=== PATIENT | male | born 1990 | race African-American/Black ===

== ENCOUNTER 2017-05-11 16:08 | Emergency (ER) | payer OTHER ==
[2017-05-11] MEDS ORDERED: HYDROcodone/Acetaminophen 5/325 mg Tablet ONE (17:32)
--- NOTE | 2017-05-11 18:23 | RAD ---
THREE VIEWS THIRD DIGIT RIGHT HAND: 05/11/17 HISTORY: Trauma and pain. AP, lateral and oblique views third digit right hand demonstrates some soft tissue injury along the d istal nail bed. No evidence of underlying bony fracture seen. The rest of the third digit is unremark able. IMPRESSION: No evidence of acute bony lesions. POS: [facility]
== END 2017-05-11 18:51 | disposition home or self-care (01) ==
LOC: ERS 16:08
DX: S68.622A Partial traumatic transphalangeal amputation of right middle finger, initial encounter (principal); J45.909 Unspecified asthma, uncomplicated; W26.0XXA Contact with knife, initial encounter

== ENCOUNTER 2017-05-12 16:31 | Emergency (ER) | payer OTHER ==
[2017-05-12 17:51] LABS: #Eosinphils 0.2 thou/uL (0.0-0.7); #Lymphocytes 1.6 thou/uL (1.20-3.40); #Monocytes 0.3 thou/uL (0.11-0.59); #Neutrophils 2.8 thou/uL (1.40-6.50); %Basophils 0.5 % (0.0-1.0); %Eosinophils 4.8 % (0.0-10.0); %Lymphocytes 31.6 % (21.0-51.0); %Monocytes 6.6 % (0.0-10.0); Hematocrit 46.4 % (42.0-52.0); Mean Platelet Volume 6.6 fL (7.4-10.4); Red Blood Cell (RBC) Count 5.26 mill/uL (4.70-6.10)
[2017-05-12 17:59] LABS: ALT (SGPT) 46 U/L (8-55); AST (SGOT) 31 U/L (5-34); Alkaline Phosphatase 78 U/L (40-150); Anion Gap 12 mmol/L (10-20); BUN (Urea Nitrogen) 14 mg/dL (8.9-20.6); Bilirubin, Total 0.3 mg/dL (0.2-1.2); Calc. Creatinine Clearance 0 mL/min (70-130); Calcium 10.2 mg/dL (7.8-10.44); Carbon Dioxide 25 mmol/L (22-29); Chloride 105 mmol/L (98-107); Estimated GFR-MDRD Greater than 90; Globulin 3.2 g/dL (2.4-3.5); Protein, Total 7.4 g/dL (6.0-8.3)
[2017-05-12] MEDS ORDERED: Bacitracin Zinc 1 Packet ONE (18:17)
== END 2017-05-12 19:01 | disposition home or self-care (01) ==
LOC: ERS 16:31
DX: R56.9 Unspecified convulsions (principal)
CPT/HCPCS: 80053; 85025; 99284

== ENCOUNTER 2017-05-16 17:16 | Outpatient (CLI) | payer OTHER | END 2017-05-16 17:17 | disposition home or self-care (01) | LOC: LABBT 17:16 | PROVIDERS: ATTEND Orthopaedic Surgery Hand Surgery | DX: Z01.812 Encounter for preprocedural laboratory examination (principal); S61.302A Unspecified open wound of right middle finger with damage to nail, initial encounter ==

== ENCOUNTER 2017-05-17 12:43 | Day surgery (SDC) | payer OTHER ==
[2017-05-16 17:35] VITALS: BMI 37.3
[~2017-05-17 12:43] MED LIST: Ketorolac Tromethamine 30 MG/ML VIAL ONE; Lidocaine 1% PF 5 ML VIAL ONE; Ondansetron HCl/PF 4 MG/2 ML Vial ONE; Propofol 200 MG/20 ML VIAL ONE
[2017-05-17] MEDS ORDERED: Thrombin 5000 UNITS/5 ML VIAL ONE (13:12)
[2017-05-17] MEDS ORDERED: Sodium Chloride 0.9% 10 ML ONE (13:12)
[2017-05-17] MEDS ORDERED: Bacitracin Zinc Ointment 30 gm TUBE ONE (13:12)
[2017-05-17] MEDS ORDERED: Fentanyl 100 MCG/2 ML VIAL ONE (13:14)
[2017-05-17] MEDS ORDERED: Propofol 500 MG/50 ML VIAL ONE (13:14)
[2017-05-17] MEDS ORDERED: CEFAZOLIN/Water 2 GM/20 ML SYRINGE ONE (13:32)
[2017-05-17] MEDS ORDERED: Bupivacaine PF 0.5% 30 ML VIAL ONE (14:14)
[2017-05-17] MEDS ORDERED: Ketorolac Tromethamine 30 MG/ML VIAL ONE (15:24)
[2017-05-17] MEDS ORDERED: Ondansetron HCl/PF 4 MG/2 ML Vial IVP PRN ×2 (15:36→15:37)
[2017-05-17] MEDS ORDERED: Non-Formulary Medication 1 EACH PO PRN (15:36)
[2017-05-17] MEDS ORDERED: Promethazine HCl 25 MG/ML VIAL IM/IV PRN (15:36)
[2017-05-17] MEDS ORDERED: Promethazine HCl 25 MG/ML VIAL SLOW IVP PRN (15:37)
[2017-05-17] MEDS ORDERED: HYDROcodone/Acetaminophen 5/325 mg Tablet PO PRN ×2 (15:37)
[2017-05-17] MEDS ORDERED: Fentanyl 100 MCG/2 ML VIAL SLOW IVP PRN (15:37)
[2017-05-17] MEDS ORDERED: Morphine 4 MG/ML VIAL SLOW IVP PRN (15:45)
[2017-05-17] MEDS ORDERED: HYDROcodone/Acetaminophen 5/325 mg Tablet ONE (16:22)
--- NOTE | 2017-05-18 07:14 | OP ---
DATE OF SURGERY: 05/17/2017 PREOPERATIVE DIAGNOSES: 1. Nail bed loss 1 cm at the right middle finger. 2. Full thickness skin loss 2.5 cm right middle finger. The patient had a history of accident invol ving the skin loss, who presented to our clinic and he had the full-thickness skin loss and nail bed injury and it was felt that he should be formally treated in the operating room environment, offering him the best chance. FINAL DIAGNOSES: 1. Nail bed loss 1 cm at the right middle finger. 2. Full thickness skin loss 2.5 cm right middle finger. The patient had a history of accident invol ving the skin loss, who presented to our clinic and he had the full-thickness skin loss and nail bed injury and it was felt that he should be formally treated in the operating room environment, offering him the best chance. PROCEDURES PERFORMED: 1. Nail plate removal. 2. Nail bed graft 1 cm x 4 mm and then a full-thickness skin graft 2.0 cm x 1.0 cm. ESTIMATED BLOOD LOSS: 2 mL INDICATIONS: The patient had a very sharp IJ contact tip of his finger where he had the loss describ ed above. Also, had some nail loss evaluated by us in clinic and felt to have probably best to be tr eated at the operating room. We then obtained consent, timeout was done appropriately once we got in to the room, and the patient was prepped and draped. Here, without using tourniquet, we could clear ly see the patient has certain areas of bleeding, not initially viable to us, but then, we performed a nail bed graft that was 1 cm long and 6 mm wide, which would not have healed on its own. Then, the patient had the wound itself primarily debrided, then a full thickness of the skin graft was harvest ed 2.0 x 1.0 cm to cover the wound with 2 bolsters applied using 4-0 nylon and bulky Adaptic, bacitra zaria and Kerlix or Ravinder. We then harvested from the adjacent tissue small graft and secured this with the same running suture that will be used to secure the main contents. Once this was done, we now had a nail removed, nail b ed grafted was viable with no defects and full thickness skin grafting. Tourniquet was never inflated, so it did not have to be deflated. The patient now had the entire con struct covered with a bulky dressing which .
== END 2017-05-17 17:15 | disposition home or self-care (01) ==
LOC: SDC 12:43
PROVIDERS: ATTEND Orthopaedic Surgery Hand Surgery
PROC: 0HDQXZZ Extraction of Finger Nail, External Approach (ICD-10-PCS; principal; 2017-05-17)
PROC: 0HRQX7Z Replacement of Finger Nail with Autologous Tissue Substitute, External Approach (ICD-10-PCS; principal; 2017-05-17)
PROC: 0HQCXZZ Repair Left Upper Arm Skin, External Approach (ICD-10-PCS; principal; 2017-05-17)
DX: S61.312A Laceration without foreign body of right middle finger with damage to nail, initial encounter (principal); J45.909 Unspecified asthma, uncomplicated; Z88.5 Allergy status to narcotic agent; Z88.8 Allergy status to other drugs, medicaments and biological substances; Z98.890 Other specified postprocedural states; W26.0XXA Contact with knife, initial encounter
CPT/HCPCS: 96372; A4216; J1885; J2001; J2405; J2704; J3010; J3490; S0020

== ENCOUNTER 2017-05-22 15:34 | Emergency (ER) | payer OTHER ==
[2017-05-22] MEDS ORDERED: cefTRIAXone\\ROCEPHIN 1 GM VIAL ONE (16:30)
[2017-05-22] MEDS ORDERED: Lidocaine 1% PF 5 ML VIAL ONE (16:30)
== END 2017-05-22 17:05 | disposition home or self-care (01) ==
LOC: SCSER 15:34
DX: L03.113 Cellulitis of right upper limb (principal); J45.909 Unspecified asthma, uncomplicated
CPT/HCPCS: 96372; J0696; J2001

== ENCOUNTER 2017-06-06 09:29 | Emergency (ER) | payer OTHER, SELFPAY ==
[2017-06-06 11:29] LABS: #Basophils 0.1 thou/uL (0.0-0.2); #Eosinphils 0.4 thou/uL (0.0-0.7); #Lymphocytes 2.3 thou/uL (1.20-3.40); #Monocytes 0.5 thou/uL (0.11-0.59); %Lymphocytes 36.8 % (21.0-51.0); %Monocytes 8.4 % (0.0-10.0); %Neutrophils 47.8 % (42.0-75.0); Hemoglobin 15.2 g/dL (14.0-18.0); Mean Corpuscular HGB CONC 33.5 g/dL (32.0-36.0); Mean Corpuscular Hemoglobin 29.2 pg (27.0-31.0); Mean Corpuscular Volume 87.2 fl (80.0-94.0); Mean Platelet Volume 6.1 fL (7.4-10.4); Platelet Count 236 thou/uL (130-400); RBC Distribution Width 12.3 % (11.5-14.5); Red Blood Cell (RBC) Count 5.22 mill/uL (4.70-6.10); White Blood Cell (WBC) Count 6.3 thou/uL (4.8-10.8)
[2017-06-06 11:36] LABS: ALT (SGPT) 46 U/L (8-55); AST (SGOT) 31 U/L (5-34); Albumin 4.2 g/dL (3.5-5.0); Alkaline Phosphatase 86 U/L (40-150); Anion Gap 16 mmol/L (10-20); BUN (Urea Nitrogen) 13 mg/dL (8.9-20.6); Bilirubin, Total 0.4 mg/dL (0.2-1.2); Calc. Creatinine Clearance 0 mL/min (70-130); Calcium 10.3 mg/dL (7.8-10.44); Carbon Dioxide 24 mmol/L (22-29); Chloride 103 mmol/L (98-107); Estimated GFR-MDRD Greater than 90; Globulin 3.2 g/dL (2.4-3.5); Glucose 128 mg/dL (70-105); Protein, Total 7.4 g/dL (6.0-8.3); Sodium 139 mmol/L (136-145)
--- NOTE | 2017-07-02 13:00 | EKG ---
Test Reason : Blood Pressure : / mmHG Vent. Rate : 105 BPM Atrial Rate : 105 BPM P-R Int : 170 ms QRS Dur : 088 ms QT Int : 324 ms P-R-T Axes : 054 029 031 degrees QTc Int : 428 ms Sinus tachycardia Otherwise normal ECG Confirmed by MADAY SAPP, VENKAT ([id number]), film editor BRETT MASSEY ([id number]) on 07/02/2017 12:59:41 PM Referred By: Confirmed By:VENKAT NASSAR MD
== END 2017-06-06 12:27 | disposition home or self-care (01) ==
LOC: ERS 09:29
DX: R56.9 Unspecified convulsions (principal); J45.909 Unspecified asthma, uncomplicated
CPT/HCPCS: 80053; 84146; 85025; 93005

== ENCOUNTER 2017-11-21 00:39 | Emergency (ER) | payer OTHER, SELFPAY ==
[2017-11-21 01:14] LABS: #Basophils 0.1 thou/uL (0.0-0.2); #Eosinphils 0.5 thou/uL (0.0-0.7); #Lymphocytes 2.8 thou/uL (1.20-3.40); #Monocytes 0.7 thou/uL (0.11-0.59); #Neutrophils 3.3 thou/uL (1.40-6.50); %Eosinophils 6.2 % (0.0-10.0); %Monocytes 9.2 % (0.0-10.0); %Neutrophils 44.6 % (42.0-75.0); Hemoglobin 15.2 g/dL (14.0-18.0); Mean Corpuscular HGB CONC 33.7 g/dL (32.0-36.0); Mean Corpuscular Hemoglobin 28.9 pg (27.0-31.0); Mean Corpuscular Volume 85.7 fL (78.0-98.0); Mean Platelet Volume 5.9 fL (7.4-10.4); Platelet Count 227 thou/uL (130-400); RBC Distribution Width 12.1 % (11.5-14.5); Red Blood Cell (RBC) Count 5.27 mill/uL (4.70-6.10); White Blood Cell (WBC) Count 7.3 thou/uL (4.8-10.8)
[2017-11-21 01:23] LABS: Bilirubin Negative (Negative); Blood, Urine Negative (Negative); Clarity CLOUDY (Clear); Glucose, Urine (Dipstick) Negative (Negative); Leukocyte Negative (Negative); Nitrite Negative (Negative); Protein, Urine (Dipstick) Negative (Neg-Trace); Specific Gravity, Urine 1.015 (1.002-1.036); Urobilinogen 0.2 mg/dL (0.2-1.0); pH, Urine 6.5 (5.0-9.0)
[2017-11-21] MEDS ORDERED: Ondansetron ODT 8 MG TAB ONE (01:25)
[2017-11-21 01:33] LABS: ALT (SGPT) 35 U/L (8-55); AST (SGOT) 26 U/L (5-34); Albumin 4.5 g/dL (3.5-5.0); Alkaline Phosphatase 86 U/L (40-150); Anion Gap 11 mmol/L (10-20); BUN (Urea Nitrogen) 18 mg/dL (8.9-20.6); Bilirubin, Total 0.4 mg/dL (0.2-1.2); Calc. Creatinine Clearance 0 mL/min (70-130); Calcium 10.3 mg/dL (7.8-10.44); Carbon Dioxide 26 mmol/L (22-29); Chloride 105 mmol/L (98-107); Estimated GFR-MDRD Greater than 90; Globulin 3.1 g/dL (2.4-3.5); Glucose 88 mg/dL (70-105); Lipase 44 U/L (8-78); Protein, Total 7.6 g/dL (6.0-8.3); Sodium 138 mmol/L (136-145)
--- NOTE | 2017-11-21 09:11 | CT ---
PRELIMINARY REPORT/[facility]/EMERGENTY AFTER-HOURS PROCEDURE CT Abdomen and Pelvis With Intravenous Contrast CLINICAL HISTORY: 27 years old, male; Pain; Abdominal pain; Generalized; Patient HX: M27 presents to ed for abdominal p ain and vomiting. Pt reports several hours of abdominal pain that began dull and is now sharp in rlq. Pt reports nausea and vomiting x2. Pt reports no appetite and denies fever, chills, diarrhea. Hx-den ies abdominal surgeries. TECHNIQUE: Axial computed tomography images of the abdomen and pelvis with intravenous contrast. Coronal reforma tted images were created and reviewed. COMPARISON: No relevant prior studies available. FINDINGS: Lung bases: Unremarkable. No mass. No consolidation. ABDOMEN: Liver: Unremarkable. Gallbladder and bile ducts: Unremarkable Pancreas: Unremarkable. Spleen: Unremarkable. Adrenals: Unremarkable. Kidneys and ureters: No stone or hydronephrosis. Stomach and bowel: Unremarkable. PELVIS: Appendix: Normal appendix. Bladder: Unremarkable. Reproductive: Unremarkable. ABDOMEN and PELVIS: Intraperitoneal space: No free air. No significant fluid collection. Bones/joints: No acute fracture. No dislocation. Soft tissues: Unremarkable. Vasculature: No abdominal aneurysm. Retroaortic left renal vein. Lymph nodes: Scattered non specific subcentimeter mesenteric and para aortic lymph nodes. IMPRESSION: No acute findings. Thank you for allowing us to participate in the care of your patient. Dictated and Authenticated by: Raghavendra Yarbrough MD 11/21/2017 3:15 AM Central Time ([place] & [place]) FINAL REPORT CT OF THE ABDOMEN AND PELVIS: DATE: 11/21/17. COMPARISON: None. HISTORY: Abdominal pain and vomiting. FINDINGS: I agree with the preliminary [facility] report dictated by Dr. Yarbrough. No acute findings are seen. POS: [facility]
== END 2017-11-21 03:37 | disposition home or self-care (01) ==
LOC: ERS 00:39
DX: R10.31 Right lower quadrant pain (principal)
CPT/HCPCS: 74177; 80053; 81003; 83690; 85025; 96361; 96374; 96376; J2270

== ENCOUNTER 2017-11-22 00:43 | Emergency (ER) | payer SELFPAY ==
[2017-11-22] MEDS ORDERED: Ketorolac Tromethamine 30 MG/ML VIAL ONE (00:59)
[2017-11-22] MEDS ORDERED: Ondansetron HCl/PF 4 MG/2 ML Vial ONE (00:59)
[2017-11-22 01:10] LABS: Bilirubin Negative (Negative); Blood, Urine Negative (Negative); Clarity Clear (Clear); Glucose, Urine (Dipstick) Negative (Negative); Leukocyte Negative (Negative); Nitrite Negative (Negative); Protein, Urine (Dipstick) Negative (Neg-Trace); Urobilinogen 0.2 mg/dL (0.2-1.0)
[2017-11-22 01:12] LABS: #Basophils 0.1 thou/uL (0.0-0.2); #Eosinphils 0.4 thou/uL (0.0-0.7); #Lymphocytes 2.3 thou/uL (1.20-3.40); #Monocytes 0.5 thou/uL (0.11-0.59); #Neutrophils 3.3 thou/uL (1.40-6.50); %Basophils 0.8 % (0.0-1.0); %Eosinophils 5.8 % (0.0-10.0); %Neutrophils 50.4 % (42.0-75.0); Hemoglobin 14.5 g/dL (14.0-18.0); Mean Corpuscular HGB CONC 33.3 g/dL (32.0-36.0); Mean Corpuscular Hemoglobin 27.2 pg (27.0-31.0); Mean Corpuscular Volume 81.7 fL (78.0-98.0); Mean Platelet Volume 6.7 fL (7.4-10.4); Platelet Count 221 thou/uL (130-400); RBC Distribution Width 11.3 % (11.5-14.5); Red Blood Cell (RBC) Count 5.34 mill/uL (4.70-6.10); White Blood Cell (WBC) Count 6.5 thou/uL (4.8-10.8)
[2017-11-22 01:29] LABS: ALT (SGPT) 33 U/L (8-55); AST (SGOT) 25 U/L (5-34); Albumin 4.2 g/dL (3.5-5.0); Alkaline Phosphatase 88 U/L (40-150); Anion Gap 13 mmol/L (10-20); BUN (Urea Nitrogen) 16 mg/dL (8.9-20.6); Bilirubin, Total 0.3 mg/dL (0.2-1.2); Calc. Creatinine Clearance 0 mL/min (70-130); Calcium 9.8 mg/dL (7.8-10.44); Carbon Dioxide 24 mmol/L (22-29); Chloride 106 mmol/L (98-107); Estimated GFR-MDRD Greater than 90; Glucose 108 mg/dL (70-105); Lipase 54 U/L (8-78); Potassium 4.1 mmol/L (3.5-5.1); Protein, Total 7.2 g/dL (6.0-8.3); Sodium 139 mmol/L (136-145)
--- NOTE | 2017-11-22 10:40 | CT ---
PRELIMINARY REPORT/[facility]/EMERGENTY AFTER-HOURS PROCEDURE CT Abdomen and Pelvis With Intravenous Contrast CLINICAL HISTORY: 27 years old, male; Pain; Abdominal pain; Patient HX: Pt reports mid abd pain that started yesterday, worse today in rlq TECHNIQUE: Axial computed tomography images of the abdomen and pelvis with intravenous contrast. Coronal reforma tted images were created and reviewed. COMPARISON: CT Abdomen Pelvis W Con 2017-11-21 02:23 FINDINGS: Lung bases: No acute findings. ABDOMEN: Liver: Normal. Gallbladder and bile ducts: Unremarkable. Pancreas: Normal. Spleen: Normal. Adrenals: Normal. Kidneys and ureters: Normal. Stomach and bowel: Unremarkable. No obstruction. PELVIS: Appendix: Normal appendix. Bladder: Unremarkable. Reproductive: Unremarkable. ABDOMEN and PELVIS: Intraperitoneal space: No free air. No significant fluid collection. Bones/joints: Unremarkable. No acute fracture. Soft tissues: Unremarkable. Vasculature: Unremarkable. Lymph nodes: Unremarkable. No enlarged lymph nodes. IMPRESSION: No acute findings. Thank you for allowing us to participate in the care of your patient. Dictated and Authenticated by: Osito Vazquez MD 11/22/2017 2:39 AM Central Time ([place] & [place]) ABDOMEN AND PELVIC CT SCAN WITH IV CONTRASTS: Emergency after hours exam at 1:16 a.m. 11-22-17. FINAL REPORT: COMPARISON: 11-21-17 FINDINGS: No significant acute process in the abdomen or pelvis. Normal appearing appendix. Code QA/Agree with [facility]. POS: [facility]
== END 2017-11-22 03:03 | disposition home or self-care (01) ==
LOC: SCSER 00:43
DX: I88.0 Nonspecific mesenteric lymphadenitis (principal)
CPT/HCPCS: 74177; 80053; 81003; 83690; 85025; 96361; 96372; 96374; 96375; J1885; J2405

== ENCOUNTER 2017-12-14 15:02 | Emergency (ER) | payer SELFPAY ==
--- NOTE | 2017-12-14 15:34 | RAD ---
THREE VIEWS LEFT SHOULDER: Comparison: None. History: Left shoulder pain. FINDINGS: Three views of the left shoulder shows no evidence of acute fracture or dislocation. No degenerative changes are seen. No focal soft tissue swelling is seen. The visualized left thorax is unremarkable. IMPRESSION: Unremarkable exam. POS: [facility]
== END 2017-12-14 15:41 | disposition home or self-care (01) ==
LOC: SCSER 15:02
DX: M25.512 Pain in left shoulder (principal)

== ENCOUNTER 2018-03-13 07:51 | Emergency (ER) | payer SELFPAY ==
--- NOTE | 2018-03-13 09:19 | CT ---
BRAIN CT WITHOUT CONTRAST: Date: 03/13/18 HISTORY: Seizure. Pain. COMPARISON: 01/24/15. FINDINGS: No parenchymal hemorrhage or extra-axial hematoma. No midline shift. Basilar cisterns are patent. Bra in volume is age-appropriate. Cortical cortes-white matter differentiation is preserved. Ventricles and sulci are patent and symmetric. Adequate aeration of the sinuses and mastoid air cells. Intact frances rium. IMPRESSION: No acute intracranial process. POS: [facility]
[2018-03-13 09:31] LABS: #Basophils 0.1 thou/uL (0.0-0.2); #Eosinphils 0.4 thou/uL (0.0-0.7); #Lymphocytes 1.9 thou/uL (1.20-3.40); #Monocytes 0.6 thou/uL (0.11-0.59); %Basophils 1.3 % (0.0-1.0); %Eosinophils 5.5 % (0.0-10.0); %Lymphocytes 27.9 % (21.0-51.0); %Monocytes 8.5 % (0.0-10.0); %Neutrophils 56.8 % (42.0-75.0); Hemoglobin 15.7 g/dL (14.0-18.0); Mean Corpuscular HGB CONC 32.2 g/dL (32.0-36.0); Mean Corpuscular Hemoglobin 27.9 pg (27.0-31.0); Mean Corpuscular Volume 86.6 fL (78.0-98.0); Mean Platelet Volume 6.1 fL (7.4-10.4); Platelet Count 260 thou/uL (130-400); RBC Distribution Width 11.9 % (11.5-14.5); Red Blood Cell (RBC) Count 5.62 mill/uL (4.70-6.10)
--- NOTE | 2018-03-13 09:33 | CT ---
CT CERVICAL SPINE NONCONTRAST: HISTORY: 27-year-old male with pain and weakness in left upper extremity. FINDINGS: Alignment is normal. The vertebral body heights are maintained. Disc spaces are maintained. There is no evidence of acute fracture. There is no evidence of high grade central spinal canal stenosis or hi gh grade neuroforaminal stenosis. There are no high grade degenerative facet changes. There is no p revertebral soft tissue swelling. IMPRESSION: Normal. beryl POS: [facility]
[2018-03-13 09:57] LABS: ALT (SGPT) 40 U/L (8-55); AST (SGOT) 32 U/L (5-34); Albumin 4.3 g/dL (3.5-5.0); Alkaline Phosphatase 94 U/L (40-150); Anion Gap 10 mmol/L (10-20); BUN (Urea Nitrogen) 14 mg/dL (8.9-20.6); Bilirubin, Total 0.3 mg/dL (0.2-1.2); Calc. Creatinine Clearance 0 mL/min (70-130); Calcium 9.8 mg/dL (7.8-10.44); Carbon Dioxide 28 mmol/L (22-29); Chloride 106 mmol/L (98-107); Estimated GFR-MDRD Greater than 90; Globulin 3.4 g/dL (2.4-3.5); Glucose 98 mg/dL (70-105); Potassium 3.8 mmol/L (3.5-5.1); Protein, Total 7.7 g/dL (6.0-8.3); Sodium 140 mmol/L (136-145)
[2018-03-13] MEDS ORDERED: predniSONE 20 MG TAB ONE (10:20)
--- NOTE | 2018-03-15 14:10 | EKG ---
Test Reason : Blood Pressure : / mmHG Vent. Rate : 058 BPM Atrial Rate : 058 BPM P-R Int : 172 ms QRS Dur : 102 ms QT Int : 392 ms P-R-T Axes : 069 069 058 degrees QTc Int : 384 ms Sinus bradycardia Otherwise normal ECG Confirmed by BETH PETIT DO ([id number]), scientific publications editor BRETT MASSEY ([id number]) on 03/15/2018 2:10:27 PM Referred By: DAMASO Confirmed By:BETH PETIT DO
== END 2018-03-13 10:28 | disposition home or self-care (01) ==
LOC: ERS 07:51
DX: M54.12 Radiculopathy, cervical region (principal)
CPT/HCPCS: 70450; 72125; 80053; 85025; 93005; J7506

== ENCOUNTER 2018-07-03 07:04 | Outpatient (CLI) | payer BC ==
[2018-07-03 17:11] LABS: #Basophils 0.1 thou/uL (0.0-0.2); #Eosinphils 0.3 thou/uL (0.0-0.7); #Lymphocytes 1.9 thou/uL (1.20-3.40); #Monocytes 0.5 thou/uL (0.11-0.59); #Neutrophils 3.1 thou/uL (1.40-6.50); %Basophils 1.1 % (0.0-1.0); %Eosinophils 5.2 % (0.0-10.0); %Lymphocytes 32.1 % (21.0-51.0); %Monocytes 8.1 % (0.0-10.0); %Neutrophils 53.5 % (42.0-75.0); Hemoglobin 15.6 g/dL (14.0-18.0); Mean Corpuscular HGB CONC 33.1 g/dL (32.0-36.0); Mean Corpuscular Hemoglobin 28.7 pg (27.0-31.0); Mean Corpuscular Volume 86.7 fL (78.0-98.0); Mean Platelet Volume 6.2 fL (7.4-10.4); Platelet Count 240 thou/uL (130-400); RBC Distribution Width 11.9 % (11.5-14.5); Red Blood Cell (RBC) Count 5.43 mill/uL (4.70-6.10); White Blood Cell (WBC) Count 5.9 thou/uL (4.8-10.8)
[2018-07-03 17:31] LABS: Anion Gap 13 mmol/L (10-20); BUN (Urea Nitrogen) 11 mg/dL (8.9-20.6); Calc. Creatinine Clearance 0 mL/min (70-130); Calcium 10.3 mg/dL (7.8-10.44); Carbon Dioxide 23 mmol/L (22-29); Chloride 107 mmol/L (98-107); Estimated GFR-MDRD Greater than 90; Glucose 107 mg/dL (70-105); Potassium 4.2 mmol/L (3.5-5.1); Sodium 139 mmol/L (136-145)
== END 2018-07-03 07:05 | disposition home or self-care (01) ==
LOC: LABBT 07:04
PROVIDERS: ATTEND Orthopaedic Surgery
DX: Z01.812 Encounter for preprocedural laboratory examination (principal); S43.005A Unspecified dislocation of left shoulder joint, initial encounter
CPT/HCPCS: 80048; 85025

== ENCOUNTER → 2018-07-07 | Day surgery (SDC) | payer BC ==
[2018-07-03 17:34] VITALS: BMI 33.5
[~2018-07-07] MED LIST changes: +CEFAZOLIN 2 GM/50 ML BAG ONE; +Dexamethasone 20 MG/5 ML VIAL ONE; +Fentanyl 100 MCG/2 ML VIAL ONE; +Glycopyrrolate 0.2 MG/ML 5 ML SYRINGE ONE; +HYDROcodone/Acetaminophen 5/325 mg Tablet PO PRN; +Ketorolac Tromethamine 30 MG/ML VIAL IVP SCH; +Midazolam HCl 2 mg/2 ml Vial ONE; -Ondansetron HCl/PF 4 MG/2 ML Vial ONE; +Ondansetron PF 4 MG/2 ML Vial IVP PRN; +Ondansetron PF 4 MG/2 ML Vial ONE; +PROPOFOL 200 MG/20 ML VIAL ONE; +Promethazine HCl 25 MG/ML VIAL IM PRN; -Propofol 200 MG/20 ML VIAL ONE; +Rocuronium Bromide 10 MG/ML (10ML VIAL) ONE; +Ropivacaine 0.2% 550 ML 550 ML NERVE BLCK SCH; +Ropivacaine 0.2% HCl/PF 20 ML ONE; +Ropivacaine 0.5% HCl/PF (150 MG/30 ML VIAL) ONE; +Zolpidem Tartrate 5 MG TAB PO PRN
--- NOTE | 2018-07-07 12:22 | OP ---
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 RANCH SUPERVISOR: Marty Brody MD ESTIMATED BLOOD LOSS: Less than 100. SPECIMENS: None. DRAINS: None. COMPLICATION: None. DESCRIPTION OF PROCEDURE: The patient was taken to the operating room, where general anesthesia was induced. He was placed in the beach-chair position. His left arm was prepped and draped in the usual sterile fashion. I made a modified deltopectoral approach. The conjoined tendons were retracted medially. I opened up the subscapularis and cleared a good thick flap of subscapularis muscle and capsule, divided this out in a nice clean layer, split the capsule with 15 blade knife and tacked the medial layer with #1 Ethibond sutures. Irrigation was performed Bankhart retractor. I freshened up the anterior lip of the glenoid and placed Arthrex 3 mm suture anchors through the bone and tested the bite for very good purchase. Four horizontal mattress sutures with a total of eight sutures were passed through the capsule, I did a little bit of a medially-based shift, tied this down very snugly to freshened bleeding bone. The capsule was then repaired with a little bit of imbrication to make up redundancies in the inferior capsule. The subscapularis was repaired with #1 Ethibond as well. Then reinforced with #2 Vicryl, irrigation was performed. Skin was closed 2-0 Vicryl and leigh ann. Sterile dressing was applied. Job ID: [id number]
== END ==
LOC: SDC 05:53
PROVIDERS: ATTEND Orthopaedic Surgery
PROC: 0RQK0ZZ Repair Left Shoulder Joint, Open Approach (ICD-10-PCS; principal; 2018-07-07)
DX: S43.432A Superior glenoid labrum lesion of left shoulder, initial encounter (principal); M24.412 Recurrent dislocation, left shoulder; F31.9 Bipolar disorder, unspecified; Z79.899 Other long term (current) drug therapy; Z88.5 Allergy status to narcotic agent; Z88.8 Allergy status to other drugs, medicaments and biological substances; X58.XXXA Exposure to other specified factors, initial encounter
CPT/HCPCS: A4306; C1713; J1100; J1885; J2001; J2250; J2405; J2704; J2795; J3010

== ENCOUNTER 2018-12-06 20:09 | Emergency (ER) | payer BC, SELFPAY ==
[2018-12-06] MEDS ORDERED: Ketorolac Tromethamine 30 MG/ML VIAL ONE (20:57)
[2018-12-06] MEDS ORDERED: Dexamethasone 4 MG TAB ONE (20:59)
[2018-12-06 21:05] LABS: Bilirubin Negative (Negative); Blood, Urine Negative (Negative); Clarity Turbid (Clear); Glucose, Urine (Dipstick) Normal (Negative); Leukocyte Negative Leu/uL (Negative); Nitrite Negative (Negative); Protein, Urine (Dipstick) Negative (Neg-Trace); Urobilinogen Normal mg/dL (Less than 2)
[2018-12-06 21:21] LABS: #Eosinphils 0.4 thou/uL (0.0-0.7); #Lymphocytes 1.8 thou/uL (1.20-3.40); #Monocytes 0.7 thou/uL (0.11-0.59); %Basophils 0.7 % (0.0-1.0); %Eosinophils 6.1 % (0.0-10.0); %Lymphocytes 30.7 % (21.0-51.0); %Monocytes 11.5 % (0.0-10.0); Mean Corpuscular HGB CONC 32.9 g/dL (32.0-36.0); Mean Corpuscular Hemoglobin 28.1 pg (27.0-31.0); Mean Corpuscular Volume 85.4 fL (78.0-98.0); Mean Platelet Volume 6.2 fL (7.4-10.4); Platelet Count 243 thou/uL (130-400); RBC Distribution Width 11.9 % (11.5-14.5); Red Blood Cell (RBC) Count 5.34 mill/uL (4.70-6.10); White Blood Cell (WBC) Count 5.8 thou/uL (4.8-10.8)
[2018-12-06 21:39] LABS: ALT (SGPT) 31 U/L (8-55); AST (SGOT) 20 U/L (5-34); Albumin 4.2 g/dL (3.5-5.0); Alkaline Phosphatase 80 U/L (40-150); Anion Gap 12 mmol/L (10-20); BUN (Urea Nitrogen) 16 mg/dL (8.9-20.6); Bilirubin, Total 0.4 mg/dL (0.2-1.2); Calc. Creatinine Clearance 0 mL/min (70-130); Calcium 9.9 mg/dL (7.8-10.44); Carbon Dioxide 23 mmol/L (22-29); Chloride 108 mmol/L (98-107); Estimated GFR-MDRD Greater than 90; Globulin 2.8 g/dL (2.4-3.5); Glucose 92 mg/dL (70-105); Sodium 139 mmol/L (136-145)
== END 2018-12-06 21:20 | disposition home or self-care (01) ==
LOC: ERS 20:09
DX: M54.16 Radiculopathy, lumbar region (principal)
CPT/HCPCS: 36415; 80053; 81003; 85025; 96372; 99283; J1885; J8540

== ENCOUNTER 2019-01-31 20:53 | Emergency (ER) | payer BC ==
[~2019-01-31 20:53] MED LIST changes: -CEFAZOLIN 2 GM/50 ML BAG ONE; -Dexamethasone 20 MG/5 ML VIAL ONE; -Fentanyl 100 MCG/2 ML VIAL ONE; -Glycopyrrolate 0.2 MG/ML 5 ML SYRINGE ONE; -HYDROcodone/Acetaminophen 5/325 mg Tablet PO PRN; +ISOVUE-370 76%-LOCM 1 ML ONE; +Iopamidol 370 76% 50 ML VIAL FS ONE; -Ketorolac Tromethamine 30 MG/ML VIAL IVP SCH; -Ketorolac Tromethamine 30 MG/ML VIAL ONE; -Lidocaine 1% PF 5 ML VIAL ONE; -Midazolam HCl 2 mg/2 ml Vial ONE; -Ondansetron PF 4 MG/2 ML Vial IVP PRN; -Ondansetron PF 4 MG/2 ML Vial ONE; -PROPOFOL 200 MG/20 ML VIAL ONE; -Promethazine HCl 25 MG/ML VIAL IM PRN; -Rocuronium Bromide 10 MG/ML (10ML VIAL) ONE; -Ropivacaine 0.2% 550 ML 550 ML NERVE BLCK SCH; -Ropivacaine 0.2% HCl/PF 20 ML ONE; -Ropivacaine 0.5% HCl/PF (150 MG/30 ML VIAL) ONE; -Zolpidem Tartrate 5 MG TAB PO PRN
[2019-01-31 22:36] LABS: #Eosinphils 0.6 thou/uL (0.0-0.7); #Lymphocytes 1.6 thou/uL (1.20-3.40); #Monocytes 0.8 thou/uL (0.11-0.59); #Neutrophils 4.6 thou/uL (1.40-6.50); %Basophils 0.3 % (0.0-1.0); %Eosinophils 7.9 % (0.0-10.0); %Lymphocytes 21.4 % (21.0-51.0); %Monocytes 10.5 % (0.0-10.0); %Neutrophils 59.9 % (42.0-75.0); Hemoglobin 15.3 g/dL (14.0-18.0); Mean Corpuscular HGB CONC 34.7 g/dL (32.0-36.0); Mean Corpuscular Hemoglobin 29.5 pg (27.0-31.0); Mean Corpuscular Volume 85.1 fL (78.0-98.0); Mean Platelet Volume 6.5 fL (7.4-10.4); Platelet Count 206 thou/uL (130-400); RBC Distribution Width 12.5 % (11.5-14.5); Red Blood Cell (RBC) Count 5.18 mill/uL (4.70-6.10); White Blood Cell (WBC) Count 7.6 thou/uL (4.8-10.8)
[2019-01-31 22:54] LABS: ALT (SGPT) 37 U/L (8-55); AST (SGOT) 27 U/L (5-34); Albumin 4.4 g/dL (3.5-5.0); Alkaline Phosphatase 85 U/L (40-150); Anion Gap 10 mmol/L (10-20); BUN (Urea Nitrogen) 16 mg/dL (8.9-20.6); Bilirubin, Total 0.3 mg/dL (0.2-1.2); Calc. Creatinine Clearance 0 mL/min (70-130); Calcium 10.1 mg/dL (7.8-10.44); Carbon Dioxide 23 mmol/L (22-29); Chloride 108 mmol/L (98-107); Estimated GFR-MDRD Greater than 90; Globulin 2.9 g/dL (2.4-3.5); Glucose 92 mg/dL (70-105); Lipase 40 U/L (8-78); Potassium 4.2 mmol/L (3.5-5.1); Protein, Total 7.3 g/dL (6.0-8.3); Sodium 137 mmol/L (136-145)
[2019-02-01] MEDS ORDERED: Ondansetron ODT 4 MG TAB ONE (00:49)
[2019-02-01 00:53] LABS: Bacteria/HPF None Seen HPF (None Seen); Bilirubin Negative (Negative); Blood, Urine 2+ (Negative); Clarity Clear (Clear); Glucose, Urine (Dipstick) Normal (Negative); Leukocyte Negative Leu/uL (Negative); Nitrite Negative (Negative); Protein, Urine (Dipstick) Negative (Neg-Trace); Squamous Epithelial 0-3 HPF (0-3); Urobilinogen Normal mg/dL (Less than 2); WBC/HPF 0-3 HPF (0-3)
[2019-02-01] MEDS ORDERED: Ketorolac Tromethamine 60 MG/2 ML VIAL ONE (01:37)
[2019-02-01] MEDS ORDERED: Ketorolac Tromethamine 30 MG/ML VIAL ONE (01:41)
--- NOTE | 2019-02-01 08:03 | CT ---
PRELIMINARY REPORT/[facility]/EMERGENCY AFTER HOURS PROCEDURE: EXAM: CT Abdomen and Pelvis With Contrast EXAM DATE/TIME: 02/01/2019 12:39 AM CLINICAL HISTORY: 28 years old, male; Abdominal pain; Localized; Right lower quadrant (rlq); Patient HX: LEANDRO katz den onset of rlq pain started approx 2 hours ago TECHNIQUE: Imaging protocol: Computed tomography of the abdomen and pelvis with intravenous contrast. COMPARISON: No relevant prior studies available. FINDINGS: Liver: No acute findings. No mass. Gallbladder and bile ducts: No calcified stones. No ductal dilation. Pancreas: No acute findings. No mass. No ductal dilation. Spleen: No acute findings. No mass. Adrenals: No acute findings. No mass. Kidneys and ureters: 2 mm stone in the right ureterovesical junction with mild hydroureteronephrosis. No left hydronephrosis. Stomach and bowel: No obstruction. Appendix: Normal. Intraperitoneal space: No free air. No significant fluid collection. Vasculature: No acute findings. No abdominal aortic aneurysm. Lymph nodes: No significant lymphadenopathy. Bladder: See above. The bladder is decompressed. Reproductive: No acute findings. Bones/joints: No acute fracture. Soft tissues: No acute findings. IMPRESSION: Right ureterovesical junction obstructing stone. Thank you for allowing us to participate in the care of your patient. Dictated and Authenticated by: Dontae Tillman MD 02/01/2019 1:08 AM Central Time ([place] & [place]) FINAL REPORT EMERGENT AFTER HOURS CT OF THE ABDOMEN AND PELVIS WITH CONTRAST: FINDINGS/IMPRESSION: I agree with the findings and impression given in the preliminary report per [facility] physician. There is a punctate 1-2 mm calcification at the right ureterovesical junction with mild right hydronephrosi s. There is no significant delay of the right nephrogram compared to the right. POS: [facility]
== END 2019-02-01 01:45 | disposition home or self-care (01) ==
LOC: ERS 20:53
DX: N13.2 Hydronephrosis with renal and ureteral calculous obstruction (principal)
CPT/HCPCS: 36415; 74177; 80053; 81003; 81015; 83690; 85025; 96374; J1885; Q0162; Q9966; Q9967

== ENCOUNTER 2019-03-24 03:17 | Emergency (ER) | payer BC ==
[2019-03-24] MEDS ORDERED: diphenhydrAMINE 50 MG/ML VIAL ONE (03:28)
[2019-03-24] MEDS ORDERED: EPINEPHrine 1 MG/ML AMP ONE (03:28)
[2019-03-24] MEDS ORDERED: methylPREDNISolone Sod Succ/PF 125 MG/2 ML VIAL ONE (03:28)
[2019-03-24] MEDS ORDERED: Famotidine/PF 20 mg/2ml Vial ONE (03:28)
== END 2019-03-24 06:00 | disposition home or self-care (01) ==
LOC: ERS 03:17
DX: T78.1XXA Other adverse food reactions, not elsewhere classified, initial encounter (principal)
CPT/HCPCS: 96361; 96372; 96374; 96375; J0171; J1200; J2930; S0028

== ENCOUNTER 2019-04-18 05:05 | Emergency (ER) | payer BC ==
[2019-04-18] MEDS ORDERED: Ondansetron ODT 8 MG TAB ONE (05:33)
[2019-04-18] MEDS ORDERED: Mag-Al 1200 mg/1200 mg/30 ML UDCUP ONE (05:33)
[2019-04-18] MEDS ORDERED: Lidocaine Viscous Sol 2% 15 ml UD Cup ONE (05:33)
[2019-04-18] MEDS ORDERED: Promethazine HCl 25 MG/ML VIAL ONE (06:08)
--- NOTE | 2019-04-18 07:48 | RAD ---
Exam: Chest 2 views HISTORY:Cough Comparison: 08/17/2013 FINDINGS: Lungs: No masses or consolidation. Cardiac silhouette: Normal size Pulmonary vessels: Normal Pleural Spaces: Clear Pneumothorax: None Osseous abnormalities: None of acuity. IMPRESSION: No focal consolidation.
== END 2019-04-18 06:30 | disposition home or self-care (01) ==
LOC: ERS 05:05
DX: B34.9 Viral infection, unspecified (principal); R11.2 Nausea with vomiting, unspecified
CPT/HCPCS: 71046; 96372; J2550

== ENCOUNTER 2019-05-05 04:27 | Emergency (ER) | payer BC ==
[2019-05-05] MEDS ORDERED: Ibuprofen 800 MG TAB ONE (06:15)
--- NOTE | 2019-05-05 07:42 | RAD ---
EXAM: 4 views of the right knee HISTORY: Knee pain COMPARISON: None FINDINGS: No knee effusion is seen. There is no evidence of acute fracture or dislocation. No signifi cant degenerative changes are seen. No soft tissue swelling is present. IMPRESSION: No evidence of acute osseous abnormality.
== END 2019-05-05 06:22 | disposition home or self-care (01) ==
LOC: ERS 04:27
DX: S80.01XA Contusion of right knee, initial encounter (principal); S40.011A Contusion of right shoulder, initial encounter; S50.01XA Contusion of right elbow, initial encounter; F31.9 Bipolar disorder, unspecified; Z79.899 Other long term (current) drug therapy; J45.909 Unspecified asthma, uncomplicated; V09.9XXA Pedestrian injured in unspecified transport accident, initial encounter
CPT/HCPCS: 99283

== ENCOUNTER 2019-06-25 23:51 | Emergency (ER) | payer BC, SELFPAY ==
[2019-06-26 00:19] LABS: #Eosinphils 0.2 thou/uL (0.0-0.7); #Lymphocytes 1.7 thou/uL (1.20-3.40); #Monocytes 0.3 thou/uL (0.11-0.59); #Neutrophils 5.9 thou/uL (1.40-6.50); %Basophils 0.5 % (0.0-1.0); %Eosinophils 1.9 % (0.0-10.0); %Lymphocytes 21.3 % (21.0-51.0); %Monocytes 3.1 % (0.0-10.0); %Neutrophils 73.2 % (42.0-75.0); Hemoglobin 16.1 g/dL (14.0-18.0); Mean Corpuscular HGB CONC 32.4 g/dL (32.0-36.0); Mean Corpuscular Hemoglobin 27.7 pg (27.0-31.0); Mean Corpuscular Volume 85.4 fL (78.0-98.0); Mean Platelet Volume 6.3 fL (7.4-10.4); Platelet Count 251 thou/uL (130-400); RBC Distribution Width 11.9 % (11.5-14.5); Red Blood Cell (RBC) Count 5.81 mill/uL (4.70-6.10); White Blood Cell (WBC) Count 8.1 thou/uL (4.8-10.8)
[2019-06-26 00:41] LABS: ALT (SGPT) 35 U/L (8-55); AST (SGOT) 23 U/L (5-34); Albumin 4.7 g/dL (3.5-5.0); Alkaline Phosphatase 98 U/L (40-110); Anion Gap 7 mmol/L (10-20); BUN (Urea Nitrogen) 13 mg/dL (8.9-20.6); Bilirubin, Total 0.4 mg/dL (0.2-1.2); Calc. Creatinine Clearance 0 mL/min (70-130); Calcium 10.4 mg/dL (7.8-10.44); Carbon Dioxide 30 mmol/L (22-29); Chloride 105 mmol/L (98-107); Estimated GFR-MDRD Greater than 90; Glucose 145 mg/dL (70-105); Potassium 3.9 mmol/L (3.5-5.1); Protein, Total 7.7 g/dL (6.0-8.3); Sodium 138 mmol/L (136-145)
[2019-06-26] MEDS ORDERED: Acetaminophen 500 MG TAB ONE (01:37)
== END 2019-06-26 01:40 | disposition home or self-care (01) ==
LOC: ERS 23:51
DX: R56.9 Unspecified convulsions (principal); Z79.899 Other long term (current) drug therapy
CPT/HCPCS: 36415; 80053; 85025; 99284

== ENCOUNTER 2019-09-10 15:39 | Emergency (ER) | payer OTHER | END 2019-09-10 16:18 | disposition home or self-care (01) | LOC: ERS 15:39 | DX: R05 Cough (principal); R50.9 Fever, unspecified; Z20.828 Contact with and (suspected) exposure to other viral communicable diseases | CPT/HCPCS: 87635; 99283; U0002 ==

== ENCOUNTER 2019-12-28 07:34 | Outpatient (CLI) | payer OTHER ==
--- NOTE | 2019-12-28 09:54 | MRI ---
MRI LEFT SHOULDER WITHOUT CONTRAST: Date: 12/28/2019 INDICATION: History of left shoulder injury and pain with limited range of motion. COMPARISON: Shoulder radiographs dated 07/23/2019. FINDINGS: The rotator cuff is intact. No muscular atrophy is present. No appreciable increased fluid is seen wi thin the subacromial and subdeltoid space. The biceps tendon is located. The biceps anchor complex ap pears within normal limits. There is abnormal increased T2 signal involving the posterior superior gl enoid labrum seen on image 12 through 13 of series 7 and image 15 of series 5 suspicious for a glenoi d labral tear. No paralabral cyst is evident. The glenohumeral articular surface appears within radha l limits. The anterior inferior glenohumeral labral ligamentous complex appears intact. The is an os acromiale present. IMPRESSION: 1. Abnormal linear T2 signal involving the posterior superior glenoid labrum from approximately the 11 o'clock position through the 9 o'clock position suspicious for a focal SLAP tear. 2. Os acromiale may predispose to symptoms of impingement. POS: [facility]
== END 2019-12-28 07:35 | disposition home or self-care (01) ==
LOC: BICMRI 07:34
PROVIDERS: ATTEND Family Medicine
DX: S49.92XD Unspecified injury of left shoulder and upper arm, subsequent encounter (principal)

== ENCOUNTER 2020-04-10 23:55 | Emergency (ER) | payer MEDICARE, OTHER, SELFPAY ==
[2020-04-11] MEDS ORDERED: Ketorolac Tromethamine 30 MG/ML VIAL ONE (00:36)
== END 2020-04-11 01:03 | disposition home or self-care (01) ==
LOC: ERS 23:55
DX: M54.10 Radiculopathy, site unspecified (principal); Z79.899 Other long term (current) drug therapy
CPT/HCPCS: 96372; 99283; J1885

== ENCOUNTER 2020-10-10 13:10 | Emergency (ER) | payer SELFPAY ==
[~2020-10-10 13:10] MED LIST changes: -ISOVUE-370 76%-LOCM 1 ML ONE; -Iopamidol 370 76% 50 ML VIAL FS ONE; +Iopamidol-370 76% 500 ML 1 ML ONE
[2020-10-10 14:20] LABS: #Eosinphils 0.2 thou/uL (0.0-0.7); #Lymphocytes 1.7 thou/uL (1.20-3.40); #Monocytes 0.6 thou/uL (0.11-0.59); #Neutrophils 4.9 thou/uL (1.40-6.50); %Basophils 0.5 % (0.0-1.0); %Eosinophils 2.4 % (0.0-10.0); %Monocytes 7.4 % (0.0-10.0); %Neutrophils 66.7 % (42.0-75.0); Hemoglobin 15.4 g/dL (14.0-18.0); Mean Corpuscular HGB CONC 34.6 g/dL (32.0-36.0); Mean Corpuscular Hemoglobin 30.4 pg (27.0-31.0); Mean Corpuscular Volume 87.8 fL (78.0-98.0); Mean Platelet Volume 6.4 fL (7.4-10.4); Platelet Count 240 thou/uL (130-400); RBC Distribution Width 11.8 % (11.5-14.5); Red Blood Cell (RBC) Count 5.06 mill/uL (4.70-6.10); White Blood Cell (WBC) Count 7.4 thou/uL (4.8-10.8)
[2020-10-10 14:40] LABS: Bacteria/HPF None Seen HPF (None Seen); Bilirubin Negative (Negative); Blood, Urine Negative (Negative); Calcium Oxalate Crystals 3+ HPF (None Seen); Clarity Clear (Clear); Glucose, Urine (Dipstick) Normal (Negative); Ketone, Urine Negative (Negative); Leukocyte Negative Leu/uL (Negative); Nitrite Negative (Negative); Protein, Urine (Dipstick) 30 mg/dL (Neg-Trace); Specific Gravity, Urine 1.033 (1.002-1.036); Squamous Epithelial 0-3 HPF (0-3); Urobilinogen Normal mg/dL (Less than 2); pH, Urine 5.5 (5.0-9.0)
[2020-10-10 14:40] LABS: ALT (SGPT) 34 U/L (8-55); AST (SGOT) 22 U/L (5-34); Albumin 4.2 g/dL (3.5-5.0); Alkaline Phosphatase 86 U/L (40-110); Anion Gap 12 mmol/L (10-20); BUN (Urea Nitrogen) 11 mg/dL (8.9-20.6); Bilirubin, Total 0.4 mg/dL (0.2-1.2); Calc. Creatinine Clearance 0 mL/min (70-130); Calcium 9.4 mg/dL (7.8-10.44); Carbon Dioxide 21 mmol/L (22-29); Chloride 108 mmol/L (98-107); Glucose 111 mg/dL (70-105); Lipase 30 U/L (8-78); Potassium 3.8 mmol/L (3.5-5.1); Protein, Total 7.2 g/dL (6.0-8.3); Sodium 137 mmol/L (136-145)
[2020-10-10] MEDS ORDERED: Ketorolac Tromethamine 30 MG/ML VIAL ONE (14:49)
[2020-10-10] MEDS ORDERED: Ondansetron PF 4 MG/2 ML Vial ONE ×2 (14:49→14:54)
[2020-10-10] MEDS ORDERED: Azithromycin 250 MG TAB PO SCH (15:15)
[2020-10-10] MEDS ORDERED: Promethazine HCl 25 MG/ML VIAL ONE (16:28)
[2020-10-10] MEDS ORDERED: cefTRIAXone\\ROCEPHIN 1 GM VIAL ONE (16:55)
== END 2020-10-10 17:23 | disposition home or self-care (01) ==
LOC: ERS 13:10
DX: R10.84 Generalized abdominal pain (principal); R19.7 Diarrhea, unspecified
CPT/HCPCS: 36415; 74177; 80053; 81003; 81015; 83690; 85025; 96374; 96375; J0696; J1885; J2405; J2550; Q9967

== ENCOUNTER 2021-04-11 22:04 | Emergency (ER) | payer SELFPAY ==
[2021-04-11 22:24] LABS: #Eosinphils 0.5 thou/uL (0.0-0.7); #Monocytes 0.7 thou/uL (0.11-0.59); #Neutrophils 3.6 thou/uL (1.40-6.50); %Basophils 0.7 % (0.0-1.0); %Lymphocytes 29.5 % (21.0-51.0); %Monocytes 9.7 % (0.0-10.0); %Neutrophils 52.1 % (42.0-75.0); Hemoglobin 15.7 g/dL (14.0-18.0); Mean Corpuscular HGB CONC 33.8 g/dL (32.0-36.0); Mean Corpuscular Hemoglobin 29.8 pg (27.0-31.0); Mean Corpuscular Volume 88.3 fL (78.0-98.0); Platelet Count 233 thou/uL (130-400); RBC Distribution Width 11.8 % (11.5-14.5); Red Blood Cell (RBC) Count 5.26 mill/uL (4.70-6.10); White Blood Cell (WBC) Count 6.8 thou/uL (4.8-10.8)
[2021-04-11 22:45] LABS: ALT (SGPT) 53 U/L (8-55); AST (SGOT) 33 U/L (5-34); Albumin 4.3 g/dL (3.5-5.0); Alkaline Phosphatase 80 U/L (40-110); Anion Gap 13 mmol/L (10-20); BUN (Urea Nitrogen) 17 mg/dL (8.9-20.6); Bilirubin, Total 0.2 mg/dL (0.2-1.2); Calc. Creatinine Clearance 0 mL/min (70-130); Calcium 9.9 mg/dL (7.8-10.44); Carbon Dioxide 25 mmol/L (22-29); Chloride 105 mmol/L (98-107); Glucose 102 mg/dL (70-105); Potassium 3.8 mmol/L (3.5-5.1); Protein, Total 7.3 g/dL (6.0-8.3); Sodium 139 mmol/L (136-145)
[2021-04-12] MEDS ORDERED: Ketorolac Tromethamine 30 MG/ML VIAL ONE (00:18)
== END 2021-04-12 00:33 | disposition home or self-care (01) ==
LOC: ERS 22:04
DX: R07.89 Other chest pain (principal); R05.9 Cough, unspecified; J02.9 Acute pharyngitis, unspecified
CPT/HCPCS: 36415; 71045; 80053; 84484; 85025; 93005; 96372; J1885

== ENCOUNTER 2021-04-13 16:03 | Inpatient (IN) | payer SELFPAY ==
[2021-04-13 17:03] LABS: Hemoglobin 15.5 g/dL (14.0-18.0); Mean Corpuscular HGB CONC 32.6 g/dL (32.0-36.0); Mean Corpuscular Hemoglobin 29.1 pg (27.0-31.0); Mean Corpuscular Volume 89.1 fL (78.0-98.0); Platelet Count 184 thou/uL (130-400); RBC Distribution Width 12.1 % (11.5-14.5); Red Blood Cell (RBC) Count 5.32 mill/uL (4.70-6.10); White Blood Cell (WBC) Count 6.2 thou/uL (4.8-10.8)
[2021-04-13 17:23] LABS: Band 3 % (5-11); Eosinophils 4 % (0-10); Lymphocytes 10 % (21-51); MDiff Complete? YES; Monocytes 14 % (0-10); Neutrophil 63 % (42-75); Platelet Morphology Comment Appears Adequate; RBC Morphology Normal; Reactive Lymphocytes 6 % (0-10)
[2021-04-13 17:35] LABS: ALT (SGPT) 47 U/L (8-55); AST (SGOT) 27 U/L (5-34); Albumin 4.3 g/dL (3.5-5.0); Alkaline Phosphatase 80 U/L (40-110); Anion Gap 12 mmol/L (10-20); BUN (Urea Nitrogen) 14 mg/dL (8.9-20.6); Bilirubin, Total 0.3 mg/dL (0.2-1.2); Calc. Creatinine Clearance 0 mL/min (70-130); Calcium 9.8 mg/dL (7.8-10.44); Carbon Dioxide 26 mmol/L (22-29); Chloride 104 mmol/L (98-107); Globulin 3.3 g/dL (2.4-3.5); Glucose 97 mg/dL (70-105); Potassium 3.8 mmol/L (3.5-5.1); Protein, Total 7.6 g/dL (6.0-8.3); Sodium 138 mmol/L (136-145)
[2021-04-13] MEDS ORDERED: Ibuprofen 200 MG TAB ONE ×2 (17:41→18:45)
[2021-04-13] MEDS ORDERED: Ketorolac Tromethamine 30 MG/ML VIAL ONE (18:45)
[2021-04-13] MEDS ORDERED: PROVENTIL INHALER 6.7 G (200 INHALATIONS) ONE (18:46)
[2021-04-13 18:58] LABS: Magnesium 1.6 mg/dL (1.6-2.6)
[2021-04-13 19:14] LABS: Bacteria/HPF None Seen HPF (None Seen); Bilirubin Negative (Negative); Blood, Urine Negative (Negative); Clarity Clear (Clear); Glucose, Urine (Dipstick) Normal (Negative); Ketone, Urine Negative (Negative); Leukocyte Negative Leu/uL (Negative); Nitrite Negative (Negative); Protein, Urine (Dipstick) 30 mg/dL (Neg-Trace); RBC/HPF 0-3 HPF (0-3); Specific Gravity, Urine 1.027 (1.002-1.036); Squamous Epithelial 0-3 HPF (0-3); Urobilinogen Normal mg/dL (Less than 2); WBC/HPF 0-3 HPF (0-3)
[2021-04-13] MEDS ORDERED: Albuterol 200 PUFF (6.7GM INHALER) ONE (20:05)
[2021-04-13 22:10] LABS: Acetaminophen Less than 6.0 mcg/mL (10.0-30.0); Alcohol Less than 10 mg/dL (Less than 10); Salicylate Less than 8.0 mg/dL (15.0-30.0)
[2021-04-13 22:38] LABS: Amphetamine Not Detected (NotDetected); Barbiturates Screen Not Detected (NotDetected); Benzodiazepine Screen Not Detected (NotDetected); Cocaine Metabolite Screen Not Detected (NotDetected); Methadone Not Detected (NotDetected); Methamphetamine Not Detected (NotDetected); Opiate Screen Not Detected (NotDetected); Oxycodone Screen Not Detected (NotDetected); Phencyclidine (PCP) Not Detected (NotDetected); THC/Cannabinoid Screen Not Detected (NotDetected); Tricyclic Screen Not Detected (NotDetected)
[2021-04-13] MEDS ORDERED: methylPREDNISolone Sod Succ/PF 125 MG/2 ML VIAL ONE (23:22)
[2021-04-13] MEDS ORDERED: Ondansetron PF 4 MG/2 ML Vial ONE (23:30)
[2021-04-14 00:08] LABS: SARS-CoV-2 NAA Rapid Test Not Detected (NotDetected)
[2021-04-14 00:48] VITALS: BMI 41.0
[2021-04-14] MEDS ORDERED: Ondansetron PF 4 MG/2 ML Vial IVP PRN (01:38)
[2021-04-14] MEDS ORDERED: Albuterol Sulfate 2.5 mg/3 ml Neb NEB PRN (01:44)
[2021-04-14] MEDS: Sodium Chloride 0.9% 1,000 ML IV SCH ×2 (01:56→08:54)
[2021-04-14] MEDS ORDERED: Oseltamivir 75 MG CAP PO SCH (02:00)
[2021-04-14] MEDS: Acetaminophen 325 MG TAB PO PRN ×3 (02:07→14:40)
[2021-04-14] MEDS ORDERED: diphenhydrAMINE 25 MG CAP PO SCH (02:30)
[2021-04-14 05:20] LABS: #Lymphocytes 0.6 thou/uL (1.20-3.40); #Monocytes 0.2 thou/uL (0.11-0.59); %Eosinophils 0.5 % (0.0-10.0); %Lymphocytes 10.3 % (21.0-51.0); %Monocytes 3.7 % (0.0-10.0); %Neutrophils 85.5 % (42.0-75.0); Hemoglobin 14.4 g/dL (14.0-18.0); Mean Corpuscular HGB CONC 32.7 g/dL (32.0-36.0); Mean Corpuscular Hemoglobin 29.2 pg (27.0-31.0); Mean Corpuscular Volume 89.4 fL (78.0-98.0); Mean Platelet Volume 6.1 fL (7.4-10.4); Platelet Count 191 thou/uL (130-400); RBC Distribution Width 12.1 % (11.5-14.5); Red Blood Cell (RBC) Count 4.92 mill/uL (4.70-6.10); White Blood Cell (WBC) Count 5.8 thou/uL (4.8-10.8)
[2021-04-14 05:40] LABS: Anion Gap 12 mmol/L (10-20); BUN (Urea Nitrogen) 14 mg/dL (8.9-20.6); Calc. Creatinine Clearance 198 mL/min (70-130); Calcium 9.4 mg/dL (7.8-10.44); Carbon Dioxide 22 mmol/L (22-29); Chloride 107 mmol/L (98-107); Glucose 205 mg/dL (70-105); Potassium 4.4 mmol/L (3.5-5.1); Sodium 137 mmol/L (136-145)
[2021-04-14] MEDS: AMOXicillin 250 MG CAP PO SCH ×2 (08:42→21:48)
[2021-04-14] MEDS: Oseltamivir 75 MG CAP PO SCH ×2 (08:49→21:48)
[2021-04-14 10:29] LABS: Troponin I Less than 0.010 ng/mL (< 0.028)
[2021-04-14] MEDS ORDERED: Ibuprofen 600 MG TAB PO PRN (12:10)
[2021-04-14] MEDS ORDERED: Cepastat Lozenges 1 LOZ PO PRN (12:12)
[2021-04-14 13:55] LABS: HIV (1/2) Antibody/Antigen Non-Reactive (NonReactive); HIV 1/2 INDEX 0.08 S/CO (<1.00)
[2021-04-14 15:22] LABS: Legionella Urinary Ag Negative (Negative); Strep pneumo Urine Ag NEGATIVE (NEGATIVE)
[2021-04-14] MEDS ORDERED: Zonisamide 100 MG CAP PO SCH (21:00)
[2021-04-15 05:10] VITALS: TEMP 98.4
[2021-04-15 05:51] LABS: Band 1 % (5-11); Hemoglobin 14.2 g/dL (14.0-18.0); Lymphocytes 26 % (21-51); MDiff Complete? YES; Mean Corpuscular HGB CONC 33.1 g/dL (32.0-36.0); Mean Corpuscular Hemoglobin 29.8 pg (27.0-31.0); Mean Corpuscular Volume 89.9 fL (78.0-98.0); Mean Platelet Volume 6.1 fL (7.4-10.4); Monocytes 16 % (0-10); Neutrophil 57 % (42-75); Platelet Count 207 thou/uL (130-400); Platelet Morphology Comment Appears Adequate; RBC Distribution Width 12.1 % (11.5-14.5); RBC Morphology Normal; Red Blood Cell (RBC) Count 4.77 mill/uL (4.70-6.10); White Blood Cell (WBC) Count 8.3 thou/uL (4.8-10.8)
[2021-04-15 05:56] LABS: Anion Gap 9 mmol/L (10-20); BUN (Urea Nitrogen) 16 mg/dL (8.9-20.6); Calc. Creatinine Clearance 217 mL/min (70-130); Calcium 9.4 mg/dL (7.8-10.44); Carbon Dioxide 24 mmol/L (22-29); Chloride 110 mmol/L (98-107); Glucose 106 mg/dL (70-105); Potassium 3.9 mmol/L (3.5-5.1); Sodium 139 mmol/L (136-145)
[2021-04-15] MEDS ORDERED: GUAIFENESIN SF SOLN 200 MG/10 ML UDCUP PO PRN (06:41)
[2021-04-15] MEDS ORDERED: Sodium Chloride 0.65% Nasal 44 ML BOT EA NARE PRN (06:41)
[2021-04-15] MEDS ORDERED: Ondansetron ODT 4 MG TAB PO PRN (06:41)
[2021-04-15] MEDS ORDERED: Loperamide HCl 2 MG CAP PO PRN (06:41)
[2021-04-15] MEDS ORDERED: Zolpidem Tartrate 5 MG TAB PO PRN (06:41)
[2021-04-15] MEDS ORDERED: Benzonatate 100 MG CAP PO PRN (06:41)
[2021-04-15] MEDS ORDERED: Hydrocerin (Eucerin) Cream 120 gm Jar TOP PRN (06:41)
[2021-04-15] MEDS ORDERED: Calcium Carbonate 500 MG ChewTAB PO PRN (06:41)
[2021-04-15] MEDS ORDERED: hydrALAZINE 20 MG/ML VIAL SLOW IVP PRN (06:41)
[2021-04-15] MEDS ORDERED: Senokot S 8.6-50 MG TAB PO PRN (06:41)
[2021-04-15] MEDS ORDERED: Loratadine 10 MG TAB PO PRN (06:41)
[2021-04-15] MEDS: Oseltamivir 75 MG CAP PO SCH (08:45)
[2021-04-15] MEDS: AMOXicillin 250 MG CAP PO SCH (08:46)
[2021-04-15] MEDS: Acetaminophen 325 MG TAB PO PRN (08:49)
[2021-04-15] MEDS ORDERED: Famotidine 20 MG TAB PO SCH (09:00)
[2021-04-15 09:58] VITALS: BP 122/72
[2021-04-17] MEDS ORDERED: FLU VACC QS2021-22(6MOS UP)/PF 60 MCG/0.5 ML SYRINGE IM ONE (09:00)
== END 2021-04-15 12:00 | disposition home or self-care (01) | DRG 194 ==
LOC: ERS 16:03 → 2SW 23:45 → OBSVTOIN 04-14 15:41
PROVIDERS: ADMIT Internal Medicine; ATTEND Internal Medicine
DX: J10.1 Influenza due to other identified influenza virus with other respiratory manifestations (principal); R04.2 Hemoptysis; Z20.822 Contact with and (suspected) exposure to COVID-19; J45.20 Mild intermittent asthma, uncomplicated; G40.909 Epilepsy, unspecified, not intractable, without status epilepticus; E66.9 Obesity, unspecified; Z68.41 Body mass index [BMI] 40.0-44.9, adult; Z88.5 Allergy status to narcotic agent; Z88.8 Allergy status to other drugs, medicaments and biological substances; Z79.899 Other long term (current) drug therapy
CPT/HCPCS: 0240U; 36415; 71275; 80048; 80053; 80306; 80307; 81003; 81015; 82550; 83605; 83735; 84484; 85025; 86713; 87081; 87389; 87430; 87449; 87899; 93005; 93010; G0378; J1885; J2405; J2930; J7050; Q9967

== ENCOUNTER 2021-09-26 20:47 | Emergency (ER) | payer BC, SELFPAY ==
[2021-09-26 21:42] LABS: #Basophils 0.1 thou/uL (0.0-0.2); #Eosinphils 0.4 thou/uL (0.0-0.7); #Monocytes 0.7 thou/uL (0.11-0.59); #Neutrophils 3.8 thou/uL (1.40-6.50); %Basophils 1.1 % (0.0-1.0); %Eosinophils 5.8 % (0.0-10.0); %Lymphocytes 29.3 % (21.0-51.0); %Monocytes 9.4 % (0.0-10.0); %Neutrophils 54.4 % (42.0-75.0); Hemoglobin 15.5 g/dL (14.0-18.0); Mean Corpuscular HGB CONC 33.4 g/dL (32.0-36.0); Mean Corpuscular Hemoglobin 29.7 pg (27.0-31.0); Mean Corpuscular Volume 89.1 fL (78.0-98.0); Platelet Count 258 thou/uL (130-400); Red Blood Cell (RBC) Count 5.23 mill/uL (4.70-6.10)
[2021-09-26 22:02] LABS: ALT (SGPT) 34 U/L (8-55); AST (SGOT) 23 U/L (5-34); Albumin 4.3 g/dL (3.5-5.0); Alkaline Phosphatase 81 U/L (40-110); Anion Gap 12 mmol/L (10-20); BUN (Urea Nitrogen) 8 mg/dL (8.9-20.6); Bilirubin, Total 0.2 mg/dL (0.2-1.2); Calc. Creatinine Clearance 0 mL/min (70-130); Calcium 9.8 mg/dL (7.8-10.44); Carbon Dioxide 23 mmol/L (22-29); Chloride 108 mmol/L (98-107); Globulin 3.2 g/dL (2.4-3.5); Glucose 94 mg/dL (70-105); Potassium 3.7 mmol/L (3.5-5.1); Protein, Total 7.5 g/dL (6.0-8.3); Sodium 139 mmol/L (136-145)
== END 2021-09-26 23:17 | disposition home or self-care (01) ==
LOC: ERS 20:47
DX: J06.9 Acute upper respiratory infection, unspecified (principal)
CPT/HCPCS: 36415; 71045; 80053; 85025

== ENCOUNTER 2022-05-10 08:00 | Outpatient (CLI) | payer BC | END 2022-05-10 08:01 | disposition home or self-care (01) | LOC: TBSIIMAG 08:00 | PROVIDERS: ATTEND Orthopaedic Surgery | DX: S83.511A Sprain of anterior cruciate ligament of right knee, initial encounter (principal); M85.661 Other cyst of bone, right lower leg ==

== ENCOUNTER 2022-05-21 09:13 | Emergency (ER) | payer BC ==
[2022-05-21] MEDS ORDERED: Dexamethasone 10 MG/ML VIAL ONE (09:54)
[2022-05-21] MEDS ORDERED: Ibuprofen 800 MG TAB ONE (09:54)
[2022-05-21 09:57] LABS: #Eosinphils 0.3 thou/uL (0.0-0.7); #Lymphocytes 1.6 thou/uL (1.20-3.40); #Monocytes 0.9 thou/uL (0.11-0.59); #Neutrophils 3.7 thou/uL (1.40-6.50); %Basophils 0.1 % (0.0-1.0); %Eosinophils 3.9 % (0.0-10.0); %Lymphocytes 25.1 % (21.0-51.0); %Monocytes 14.5 % (0.0-10.0); %Neutrophils 56.4 % (42.0-75.0); Mean Corpuscular HGB CONC 33.1 g/dL (32.0-36.0); Mean Corpuscular Hemoglobin 29.7 pg (27.0-31.0); Mean Corpuscular Volume 89.8 fl (78.0-98.0); Mean Platelet Volume 6.5 fL (7.4-10.4); Platelet Count 214 10x3/uL (130-400); RBC Distribution Width 11.8 % (11.5-14.5); Red Blood Cell (RBC) Count 5.37 mill/uL (4.70-6.10); White Blood Cell (WBC) Count 6.5 10x3/uL (4.8-10.8)
[2022-05-21 10:17] LABS: ALT (SGPT) 36 U/L (8-55); AST (SGOT) 24 U/L (5-34); Albumin 4.4 g/dL (3.5-5.0); Alkaline Phosphatase 99 U/L (40-110); Anion Gap 13 mmol/L (10-20); BUN (Urea Nitrogen) 13 mg/dL (8.9-20.6); Bilirubin, Total 0.3 mg/dL (0.2-1.2); Calc. Creatinine Clearance 0 mL/min (70-130); Carbon Dioxide 22 mmol/L (22-29); Chloride 106 mmol/L (98-107); Estimated GFR 77; Globulin 3.3 g/dL (2.4-3.5); Glucose 97 mg/dL (70-105); Potassium 3.9 mmol/L (3.5-5.1); Protein, Total 7.7 g/dL (6.0-8.3); Sodium 137 mmol/L (136-145)
== END 2022-05-21 11:12 | disposition home or self-care (01) ==
LOC: ERS 09:13
DX: J01.90 Acute sinusitis, unspecified (principal); B34.9 Viral infection, unspecified; Z20.822 Contact with and (suspected) exposure to COVID-19
CPT/HCPCS: 71045; 80053; 84484; 85025; 87804; 93005; J1100; J7620; U0003; U0005

== ENCOUNTER 2023-02-09 22:20 | Emergency (ER) | payer OTHER, BC ==
[~2023-02-09 22:20] MED LIST changes: -Iopamidol-370 76% 500 ML 1 ML ONE; +Iopamidol-370 76% 500 ML MDV (1 ML CHARGE) ONE
[2023-02-09 22:50] LABS: #Basophils 0.1 thou/uL (0.0-0.2); #Eosinphils 0.4 thou/uL (0.0-0.7); #Monocytes 0.6 thou/uL (0.11-0.59); #Neutrophils 3.7 thou/uL (1.40-6.50); %Basophils 0.7 % (0.0-1.0); %Lymphocytes 37.3 % (21.0-51.0); %Monocytes 7.8 % (0.0-10.0); %Neutrophils 49.1 % (42.0-75.0); Hematocrit 43.7 % (42.0-52.0); Hemoglobin 14.8 g/dL (14.0-18.0); Mean Corpuscular HGB CONC 33.9 g/dL (32.0-36.0); Mean Corpuscular Hemoglobin 29.2 pg (27.0-31.0); Mean Corpuscular Volume 86.4 fl (78.0-98.0); Platelet Count 226 10x3/uL (130-400); RBC Distribution Width 12.8 % (11.5-14.5); Red Blood Cell (RBC) Count 5.06 mill/uL (4.70-6.10); White Blood Cell (WBC) Count 7.5 10x3/uL (4.8-10.8)
[2023-02-09 23:08] LABS: INR-International Normal Ratio 0.9; Prothrombin Time 12.9 sec (12.0-14.7)
[2023-02-09 23:09] LABS: PTT 25.7 sec (22.9-36.1)
[2023-02-09] MEDS ORDERED: fentaNYL 50 mcg/mL 1 mL Vial ONE (23:24)
[2023-02-09 23:38] LABS: Bacteria/HPF None Seen HPF (None Seen); Bilirubin Negative (Negative); Blood, Urine Negative (Negative); Clarity Clear (Clear); Glucose, Urine (Dipstick) Normal (Negative); Ketone, Urine Negative (Negative); Leukocyte Negative Leu/uL (Negative); Nitrite Negative (Negative); Protein, Urine (Dipstick) Negative (Neg-Trace); RBC/HPF 0-3 HPF (0-3); Specific Gravity, Urine 1.022 (1.002-1.036); Squamous Epithelial None Seen HPF (0-3); Urobilinogen Normal mg/dL (Less than 2); WBC/HPF 0-3 HPF (0-3)
[2023-02-09 23:40] LABS: Urine Culture Reflex Yes Yes
[2023-02-10 00:09] LABS: Albumin 4.2 g/dL (3.5-5.0)
[2023-02-10 00:10] LABS: Chloride 107 mmol/L (98-107); Potassium 3.7 mmol/L (3.5-5.1); Sodium 135 mmol/L (136-145)
[2023-02-10 00:11] LABS: Calcium 9.7 mg/dL (7.8-10.44)
[2023-02-10 00:12] LABS: Globulin 2.8 g/dL (2.4-3.5); Glucose 91 mg/dL (70-105)
[2023-02-10 00:13] LABS: Anion Gap 9 mmol/L (10-20); Carbon Dioxide 23 mmol/L (22-29)
[2023-02-10 00:14] LABS: Bilirubin, Total 0.3 mg/dL (0.2-1.2)
[2023-02-10 00:15] LABS: Alkaline Phosphatase 78 U/L (40-110); Calc. Creatinine Clearance 0 mL/min (70-130); Estimated GFR 89
[2023-02-10 00:16] LABS: BUN (Urea Nitrogen) 16 mg/dL (8.9-20.6)
[2023-02-10 00:17] LABS: AST (SGOT) 30 U/L (5-34)
[2023-02-10 00:18] LABS: ALT (SGPT) 38 U/L (8-55); Lipase 48 U/L (8-78)
== END 2023-02-10 00:46 | disposition home or self-care (01) ==
LOC: ERS 22:20
DX: S44.92XA Injury of unspecified nerve at shoulder and upper arm level, left arm, initial encounter (principal); Z23 Encounter for immunization; V29.99XA Rider (driver) (passenger) of other motorcycle injured in unspecified traffic accident, initial encounter
CPT/HCPCS: 36415; 70450; 71045; 71260; 72125; 72170; 74177; 80053; 81001; 83690; 85025; 85610; 85730; 86850; 86900; 86901; 93005; 96374; J3010; Q9967

== ENCOUNTER 2023-10-17 18:45 | Emergency (ER) | payer BC, OTHER ==
[2023-10-17] MEDS ORDERED: Ketorolac Tromethamine 30 MG (1 mL) VIAL ONE (19:45)
[2023-10-17] MEDS ORDERED: Ondansetron ODT 4 MG TAB ONE (20:08)
[2023-10-17 20:34] LABS: #Basophils 0.04 10x3/uL (0.0-0.2); %Basophils 0.6 % (0.0-1.0); %Eosinophils 4.7 % (0.0-10.0); %Lymphocytes 35.1 % (21.0-51.0); %Monocytes 7.9 % (0.0-10.0); %Neutrophils 51.4 % (42.0-75.0); Hematocrit 47.9 % (42.0-52.0); Hemoglobin 16.5 g/dL (14.0-18.0); Mean Corpuscular HGB CONC 34.4 g/dL (32.0-36.0); Mean Corpuscular Hemoglobin 28.9 pg (27.0-31.0); Mean Platelet Volume 8.4 fL (7.4-10.4); Platelet Count 244 10x3/uL (130-400); RBC Distribution Width 12.6 % (11.5-14.5)
[2023-10-17 20:54] LABS: ALT (SGPT) 40 U/L (8-55); AST (SGOT) 22 U/L (5-34); Albumin 4.2 g/dL (3.5-5.0); Alkaline Phosphatase 91 U/L (40-110); Anion Gap 12 mmol/L (10-20); BUN (Urea Nitrogen) 12 mg/dL (8.9-20.6); Bilirubin, Total 0.4 mg/dL (0.2-1.2); Calc. Creatinine Clearance 0 mL/min (70-130); Calcium 10.1 mg/dL (7.8-10.44); Carbon Dioxide 21 mmol/L (22-29); Chloride 112 mmol/L (98-107); Estimated GFR 85; Globulin 3.3 g/dL (2.4-3.5); Glucose 92 mg/dL (70-105); Lipase 38 U/L (8-78); Potassium 4.2 mmol/L (3.5-5.1); Protein, Total 7.5 g/dL (6.0-8.3); Sodium 141 mmol/L (136-145); Troponin I Less than 0.010 ng/mL (< 0.028)
[2023-10-17] MEDS ORDERED: Lidocaine 2% Viscous 10 mL, Alum & Magn 30 mL SSW SCH (21:45)
== END 2023-10-17 23:43 | disposition home or self-care (01) ==
LOC: ERS 18:45
DX: M94.0 Chondrocostal junction syndrome [Tietze] (principal)
CPT/HCPCS: 36415; 71045; 80053; 83690; 84484; 85025; 93005; 96372; J1885; Q0162